=== PATIENT | male | born 1985 | race Hispanic/Latino ===

== ENCOUNTER 2017-06-11 19:18 | Inpatient (IN) | payer BC, OTHER ==
[2017-06-11 19:39] VITALS: BMI 35.4
[2017-06-11 19:57] LABS: BASO # 0.03 K/mm3 (0.0-2.0); BASO % 0.3 % (0.0-3.0); EOS # 0.1 (0.0-0.7); EOS % 1.2 % (1.5-5.0); GRAN # 5.41 (1.4-6.5); HEMOGLOBIN 15.2 g/dL (14.0-18.0); LYMPH # 4.3 (1.2-3.4); LYMPH % 39.7 % (22.0-35.0); MEAN CELL VOLUME 84.4 fl (80.0-105.0); MEAN CORPUSCULAR HGB CONC 35.5 g/dl (31.0-37.0); MEAN PLATELET VOLUME 9.2 fl (7.0-11.0); MONO % 8.8 % (1.0-6.0); RBC 5.07 10^6/uL (3.5-6.1); RED CELL DISTRIBUTION WIDTH 13.3 % (11.5-14.5); WHITE BLOOD COUNT 10.8 10^3/ul (4.5-11.0)
[2017-06-11 20:04] LABS: ALB/GLOB RATIO 1.5 (1.1-1.8); ALBUMIN 4.8 g/dL (3.0-4.8); ALT/SGPT 64 U/L (7-56); AST/SGOT 66 U/L (17-59); BLOOD UREA NITROGEN 16 mg/dL (7-21); CALCIUM 10.8 mg/dL (8.4-10.5); D DIMER < 200 ng/mL (0-243); GFR AFRICAN-AMERICAN > 60; GFR NON-AFRICAN AMERICAN > 60; LIPASE 1111 U/L (23-300); PARTIAL THROMBOPLASTIN TIME 29.8 Seconds (25.1-36.5); PROTHROMBIN TIME 11.4 SECONDS (9.4-12.5)
[2017-06-11] MEDS ORDERED: Sodium Chloride 0.9% 1,000 ML IV STA (20:09)
[2017-06-11] MEDS ORDERED: Morphine 4 mg/ml ISec IVP STA (20:10)
[2017-06-11 20:15] LABS: B-TYPE NATRIURETIC PEPTIDE 26.2 pg/mL (0-450); TROPONIN I < 0.01 ng/mL
--- NOTE | 2017-06-11 20:20 | ED PDOC ---
Arrival/HPI <TiffanyOsmar - Last Filed: 06/11/17 20:24> - General Historian: Patient <Pool Carreon Marti - Last Filed: 06/12/17 01:13> - General Chief Complaint: Chest Pain Time Seen by Provider: 06/11/17 19:29 - History of Present Illness Narrative History of Present Illness (Text): 06/11/17 20:16 32male with no PMhx who present with complaint of sudden epigastric pain. States it started with SOB and then pressure like epigastric abdominal pain this evening. He denies previous history. Denies nausea, vomiting, diarrhea, constipation, chest pain, diaphoresis, fever, chills, sick contact, travel, any other complaint. (Pool Carreon A) Past Medical History - Provider Review Nursing Documentation Reviewed: Yes - Tetanus Immunization Tetanus Immunization: Unknown - Past Medical History Past Medical History: No Previous - Psychiatric Hx Substance Use: No - Past Surgical History Past Surgical History: No Previous <Pool Carreon Marti - Last Filed: 06/12/17 01:13> Family/Social History - Physician Review Nursing Documentation Reviewed: Yes Family/Social History: Unknown Family HX Smoking Status: yes Hx Alcohol Use: No Hx Substance Use: No <Pool Carreon A - Last Filed: 06/12/17 01:13> Allergies/Home Meds <Osmar Allen - Last Filed: 06/11/17 20:24> <Pool Carreon Marti - Last Filed: 06/12/17 01:13> Allergies/Adverse Reactions: Allergies No Known Allergies Allergy (Verified 11/24/13 22:44) Review of Systems - Physician Review All systems were reviewed & negative as marked: Yes - Review of Systems Constitutional: Normal Eyes: Normal ENT: Normal Respiratory: Normal Cardiovascular: Normal Gastrointestinal: Abdominal Pain. absent: Constipation, Diarrhea, Nausea, Vomiting, Hematemesis Genitourinary Male: Normal Musculoskeletal: Normal Skin: Normal Neurological: Normal Endocrine: Normal Hemo/Lymphatic: Normal Psychiatric: Normal <Pool Carreon Marti - Last Filed: 06/12/17 01:13> Physical Exam Vital Signs Reviewed: Yes Temperature: Afebrile Blood Pressure: Normal Pulse: Regular Respiratory Rate: Normal Appearance: Positive for: Well-Appearing, Non-Toxic, Comfortable Pain Distress: None Mental Status: Positive for: Alert and Oriented X 3 - Systems Exam Head: Present: Atraumatic, Normocephalic Pupils: Present: PERRL Extroacular Muscles: Present: EOMI Conjunctiva: Present: Normal Mouth: Present: Moist Mucous Membranes Neck: Present: Normal Range of Motion Respiratory/Chest: Present: Clear to Auscultation, Good Air Exchange. No: Respiratory Distress, Accessory Muscle Use Cardiovascular: Present: Regular Rate and Rhythm, Normal S1, S2. No: Murmurs Abdomen: Present: Tenderness (Epigastric tenderness), Other (Soft). No: Distention, Peritoneal Signs, Rebound, Guarding, McBurney's Point Tender, Rovsing's Sign Present Back: Present: Normal Inspection Upper Extremity: Present: Normal Inspection. No: Cyanosis, Edema Lower Extremity: Present: Normal Inspection. No: Edema Neurological: Present: GCS=15, CN II-XII Intact, Speech Normal Skin: Present: Warm, Dry, Normal Color. No: Rashes Psychiatric: Present: Alert, Oriented x 3, Normal Insight, Normal Concentration <Pool Carreon A - Last Filed: 06/12/17 01:13> Vital Signs Temp Pulse Resp BP Pulse Ox 06/11/17 21:42 66 20 141/82 100 06/11/17 19:29 97.7 F 84 18 131/78 99 Medical Decision Making <Osmar Allen - Last Filed: 06/11/17 20:24> <Pool Carreon A - Last Filed: 06/12/17 01:13> ED Course and Treatment: 06/11/17 20:21 Pt in ED for stated history. He was hemodyanmically stable in ED. Lab was noted with elevated Lipase. On further questioning, pt admits to drinking alcohol this weekend. He drinks alcohol. He will be admitted for further evaluation and Observation. EKG NSR @73bpm 06/12/17 01:[address] Ortiz and she accepted pt for admission. Dr. Melissa, pt's PMD request Dr. Lakhani consult. (Pool Carreon A) - Lab Interpretations Lab Results: 06/11/17 19:35 06/11/17 19:35 Lab Results 06/11/17 19:45: Triglycerides 110, Cholesterol 197, LDL Cholesterol Direct 77, HDL Cholesterol 91 H 06/11/17 19:35: TSH 3rd Generation 1.34, Alcohol, Quantitative < 10 06/11/17 19:35: Sodium 138, Potassium 4.1, Chloride 101, Carbon Dioxide 23, Anion Gap 18, BUN 16, Creatinine 0.9, Est GFR ( Amer) > 60, Est GFR (Non- Af Amer) > 60, Random Glucose 107, Calcium 10.8 H, Magnesium 1.9, Total Bilirubin 1.0, AST 66 H, ALT 64 H, Alkaline Phosphatase 84, Lactate Dehydrogenase 395, Total Creatine Kinase 126, Troponin I < 0.01, NT-Pro-B Natriuret Pep 26.2, Total Protein 7.9, Albumin 4.8, Globulin 3.1, Albumin/ Globulin Ratio 1.5, Lipase 1111 H 06/11/17 19:35: PT 11.4, INR 1.00, APTT 29.8, D-Dimer, Quantitative < 200 06/11/17 19:35: WBC 10.8, RBC 5.07, Hgb 15.2, Hct 42.8, MCV 84.4, MCH 30.0, MCHC 35.5, RDW 13.3, Plt Count 317, MPV 9.2, Gran % 50.0, Lymph % (Auto) 39.7 H , [place] % (Auto) 8.8 H, Eos % (Auto) 1.2 L, Baso % (Auto) 0.3, Gran # 5.41, Lymph # (Auto) 4.3 H, [place] # (Auto) 1.0 H, Eos # (Auto) 0.1, Baso # (Auto) 0.03 - Medication Orders Current Medication Orders: Sodium Chloride (Sodium Chloride 0.9%) 1,000 mls @ 175 mls/hr IV .Q5H43M [facility] Last Admin: 06/11/17 23:13 Dose: 175 mls/hr eMAR Start Stop Document 06/11/17 23:13 MV (Rec: 06/11/17 23:13 MV [id number]) Intravenous Solution Start Date 06/11/17 Start Time 23:13 End Date 06/11/17 Ketorolac Tromethamine (Toradol) 30 mg IVP Q6H PRN PRN Reason: Pain, moderate (4-7) Pantoprazole Sodium (Protonix Inj) 40 mg IVP DAILY JUAN RAMON Discontinued Medications Famotidine (Pepcid) 20 mg IVP STAT STA Stop: 06/11/17 19:52 Last Admin: 06/11/17 20:38 Dose: 20 mg IVP Administration Document 06/11/17 20:38 CNR (Rec: 06/11/17 20:38 CNR [id number]) Charges for Administration # of IVP Administrations 1 Sodium Chloride (Sodium Chloride 0.9%) 1,000 mls @ 999 mls/hr IV .Q1H1M STA Stop: 06/11/17 21:09 Last Admin: 06/11/17 20:38 Dose: 999 mls/hr eMAR Start Stop Document 06/11/17 20:38 CNR (Rec: 06/11/17 20:38 CNR [id number]) Intravenous Solution Start Date 06/11/17 Start Time 20:38 Morphine Sulfate (Morphine) 4 mg IVP STAT STA Stop: 06/11/17 20:11 Last Admin: 06/11/17 20:37 Dose: 4 mg MAR Pain Assessment Document 06/11/17 20:37 CNR (Rec: 06/11/17 20:38 CNR [id number]) Pain Reassessment Is this a pain reassessment? 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 / has examined the patient and agrees with the treatment plan. <Osmar Allen - Last Filed: 06/11/17 20:24> Disposition/Present on Arrival <Osmar Allen - Last Filed: 06/11/17 20:24> - Present on Arrival Any Indicators Present on Arrival: No History of DVT/PE: No History of Uncontrolled Diabetes: No Urinary Catheter: No History of Decub. Ulcer: No History Surgical Site Infection Following: None - Disposition Have Diagnosis and Disposition been Completed?: Yes Disposition Time: 20:25 <Pool Carreon - Last Filed: 06/12/17 01:13> - Disposition Diagnosis: Acute pancreatitis Disposition: HOSPITALIZED Patient Problems: Current Active Problems Problem Status Onset Acute pancreatitis Acute Condition: FAIR
[2017-06-11 21:06] LABS: URINE BILIRUBIN NEGATIVE (NEGATIVE); URINE BLOOD NEGATIVE (NEGATIVE); URINE GLUCOSE (UA) NEGATIVE (NEGATIVE); URINE LEUKOCYTE ESTERASE NEGATIVE Leu/uL (NEGATIVE); URINE PROTEIN NEGATIVE mg/dL (<30 mg/dL); URINE UROBILINOGEN 0.2 E.U./dL (<1 E.U./dL)
[2017-06-11 21:08] LABS: URINE APPEARANCE CLEAR (CLEAR); URINE COLOR YELLOW (YELLOW)
[2017-06-11 21:26] LABS: BARBITURATES, UR NEGATIVE (NEGATIVE); BENZODIAZEPINES, UR NEGATIVE (NEGATIVE); OPIATES, UR POSITIVE (NEGATIVE); PHENCYCLIDINE, UR NEGATIVE (NEGATIVE)
--- NOTE | 2017-06-11 21:26 | CP.PCM.HP ---
History of Present Illness - History of Present Illness History of Present Illness: Kari Aiken, PGY1, H&P for Dr Ortiz: CC: epigastric pain 32 year old male with no significant PMH, presents for sudden onset of epigastric pain this afternoon. Pt states that he was cooking at home, when he felt sudden pressure like epigastric pain, constant, nonradiating, has no associated nausea, vomiting, fever, chills, AMS/confusion. Pt tried walking around at home to relieve his pain. He however, states that the pain got worse after some time, causing him sob, which prompted him to come to ED. No sick contacts or recent travel. Pt was in his usual state of health prior to this pain. No prior such episodes. Pt states that he has been eating more junk/fatty foods like pizza, since his got 7 months ago. Last alcohol drink this past Sunday, mostly rum and cocktail drinks. Furthermore, denies headache , cp, jaundice, neck pain, diaphoresis, palpitations, worsening of pain with exertion, diarrhea, constipation, melena, hematochezia, fatigue, urinary symptoms, leg swelling, orthopnea. In ED, pt's vitals stable. Elevated lipase 1111, with elevated lfts AST 66, ALT 64, calcium 10.8. EKG showed NSR with no ST/T wave abnormalities, trop neg x1. Received Pepcid, Morphine, 1L NS bolus in ED. 12 point ROS obtained and negative, except as per HPI. PMD: [facility] ([place], [place]) PMH: denies PSH: denies All: NKA FH: Grandfather, cirrhosis, alcoholic Mother, heart mumur HTN, esophageal cancer, stomach cancer SH: Lives with . 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 Smokes cigars 1-2X/month. Drinks alcohol every other weeks, cocktail drinks 3-4, rum. Denies illicit drug use. Present on Admission - Present on Admission Any Indicators Present on Admission: No History of DVT/PE: No History of Uncontrolled Diabetes: No Urinary Catheter: No Decubitus Ulcer Present: No Review of Systems - Review of Systems All systems: reviewed and no additional remarkable complaints except Review of Systems: as per hpi Past Patient History - Tetanus Immunizations Tetanus Immunization: Unknown - Past Social History Smoking Status: yes - PSYCHIATRIC Hx Substance Use: No Meds Allergies/Adverse Reactions: Allergies Allergy/AdvReac Type Severity Reaction Status Date / Time No Known Allergies Allergy Verified 11/24/13 22:44 Physical Exam - Constitutional Appears: Non-toxic, No Acute Distress - Head Exam Head Exam: ATRAUMATIC, NORMOCEPHALIC - Eye Exam Eye Exam: EOMI, PERRL. absent: Conjunctival injection, Nystagmus, Scleral icterus Pupil Exam: NORMAL ACCOMODATION, PERRL. absent: Fixed, Irregular, Unequal - ENT Exam ENT Exam: Mucous Membranes Moist - Neck Exam Neck exam: Positive for: Full Rom - Respiratory Exam Respiratory Exam: Clear to Auscultation Bilateral, NORMAL BREATHING PATTERN. absent: Accessory Muscle Use, Rales, Rhonchi, Wheezes, Respiratory Distress, Stridor - Cardiovascular Exam Cardiovascular Exam: RRR, +S1, +S2. absent: Systolic Murmur - GI/Abdominal Exam GI & Abdominal Exam: Normal Bowel Sounds, Soft, Tenderness (Mild TTP in epigatric region). absent: Distended, Firm, Guarding, Rebound, Rigid - Extremities Exam Extremities exam: Positive for: normal inspection. Negative for: calf tenderness, pedal edema - Back Exam Back exam: NORMAL INSPECTION. absent: CVA tenderness (L), CVA tenderness (R) - Neurological Exam Neurological exam: Alert, Oriented x3 - Psychiatric Exam Psychiatric exam: Normal Affect, Normal Mood - Skin Skin Exam: Dry, Normal Color, Warm Results - Vital Signs Recent Vital Signs: Last Vital Signs Temp 97.7 F 06/11/17 19:29 Pulse 84 06/11/17 19:29 Resp 18 06/11/17 19:29 BP 131/78 06/11/17 19:29 Pulse Ox 99 06/11/17 19:29 - Labs Result Diagrams: 06/11/17 19:35 06/11/17 19:35 Labs: Laboratory Results - last 24 hr 06/11/17 06/11/17 06/11/17 19:35 19:35 19:35 WBC 10.8 RBC 5.07 Hgb 15.2 Hct 42.8 MCV 84.4 MCH 30.0 MCHC 35.5 RDW 13.3 Plt Count 317 MPV 9.2 Gran % 50.0 Lymph % (Auto) 39.7 H [place] % (Auto) 8.8 H Eos % (Auto) 1.2 L Baso % (Auto) 0.3 Gran # 5.41 Lymph # (Auto) 4.3 H [place] # (Auto) 1.0 H Eos # (Auto) 0.1 Baso # (Auto) 0.03 PT 11.4 INR 1.00 APTT 29.8 D-Dimer, Quantitative < 200 Sodium 138 Potassium 4.1 Chloride 101 Carbon Dioxide 23 Anion Gap 18 BUN 16 Creatinine 0.9 Est GFR ( Amer) > 60 Est GFR (Non-Af Amer) > 60 Random Glucose 107 Calcium 10.8 H Magnesium 1.9 Total Bilirubin 1.0 AST 66 H ALT 64 H Alkaline Phosphatase 84 Lactate Dehydrogenase 395 Total Creatine Kinase 126 Troponin I < 0.01 NT-Pro-B Natriuret Pep 26.2 Total Protein 7.9 Albumin 4.8 Globulin 3.1 Albumin/Globulin Ratio 1.5 Lipase 1111 H Urine Color Urine Appearance Urine pH Ur Specific [place] Urine Protein Urine Glucose (UA) Urine Ketones Urine Blood Urine Nitrate Urine Bilirubin Urine Urobilinogen Ur Leukocyte Esterase 06/11/17 20:56 WBC RBC Hgb Hct MCV MCH MCHC RDW Plt Count MPV Gran % Lymph % (Auto) [place] % (Auto) Eos % (Auto) Baso % (Auto) Gran # Lymph # (Auto) [place] # (Auto) Eos # (Auto) Baso # (Auto) PT INR APTT D-Dimer, Quantitative Sodium Potassium Chloride Carbon Dioxide Anion Gap BUN Creatinine Est GFR ( Amer) Est GFR (Non-Af Amer) Random Glucose Calcium Magnesium Total Bilirubin AST ALT Alkaline Phosphatase Lactate Dehydrogenase Total Creatine Kinase Troponin I NT-Pro-B Natriuret Pep Total Protein Albumin Globulin Albumin/Globulin Ratio Lipase Urine Color Yellow Urine Appearance Clear Urine pH 6.0 Ur Specific [place] <= 1.005 Urine Protein Negative Urine Glucose (UA) Negative Urine Ketones Negative Urine Blood Negative Urine Nitrate Negative Urine Bilirubin Negative Urine Urobilinogen 0.2 Ur Leukocyte Esterase Negative Assessment & Plan - Assessment and Plan (Free Text) Assessment: 32 year old male with no significant PMH, presents for epigastric pain: Epigastric pain: likely 2/2 acute pancreatitis vs GERD vs less likely ACS - NPO, IVF NS @ 175, toradol prn pain - Lipid panel, RUQ US - GI consult. F/u recs - Villard's criteria 1 point: <5% mortality - BISAP score 0: <1% risk of mortality - Protonix - EKG showed 73 NSR. trop negx1 - CATE score 0 PPX: SCDs, Protonix Discussed with Dr Ortiz.
[2017-06-11 21:53] LABS: HDL CHOLESTEROL 91 mg/dL (29-60)
[2017-06-11 22:04] LABS: LDL CHOLESTEROL 77 mg/dL (0-129)
[2017-06-11] MEDS: Sodium Chloride 0.9% 1,000 ML IV SCH (23:13)
[2017-06-12] MEDS: Sodium Chloride 0.9% 1,000 ML IV SCH ×3 (03:20→20:07)
[2017-06-12 06:50] LABS: BASO # 0.03 K/mm3 (0.0-2.0); BASO % 0.4 % (0.0-3.0); EOS # 0.1 (0.0-0.7); EOS % 1.7 % (1.5-5.0); GRAN # 3.92 (1.4-6.5); GRAN % 51.5 % (50.0-68.0); HEMOGLOBIN 13.9 g/dL (14.0-18.0); MEAN CELL VOLUME 85.5 fl (80.0-105.0); MEAN CORPUSCULAR HEMOGLOBIN 29.2 pg (25.0-35.0); MEAN CORPUSCULAR HGB CONC 34.2 g/dl (31.0-37.0); MEAN PLATELET VOLUME 9.1 fl (7.0-11.0); MONO # 0.6 (0.1-0.6); MONO % 7.4 % (1.0-6.0); RBC 4.76 10^6/uL (3.5-6.1); RED CELL DISTRIBUTION WIDTH 13.5 % (11.5-14.5); WHITE BLOOD COUNT 7.6 10^3/ul (4.5-11.0)
[2017-06-12 07:16] LABS: ALB/GLOB RATIO 1.4 (1.1-1.8); ALBUMIN 3.8 g/dL (3.0-4.8); ALT/SGPT 87 U/L (7-56); AST/SGOT 65 U/L (17-59); BLOOD UREA NITROGEN 13 mg/dL (7-21); CALCIUM 9.5 mg/dL (8.4-10.5); GFR AFRICAN-AMERICAN > 60; GFR NON-AFRICAN AMERICAN > 60
[2017-06-12] MEDS ORDERED: Barium Sulfate Susp 2.1% w/v, 2.0% w/w 450 mL Bottle PO ONE (07:23)
[2017-06-12 08:02] VITALS: RESP 18
--- NOTE | 2017-06-12 10:29 | CARD ---
APPROVED REPORT EKG Measurement Heart [id number] <Conclusion> Normal sinus rhythm Normal ECG
--- NOTE | 2017-06-12 10:40 | US ---
HISTORY: RUQ US, eleavted LFTs, pancreatitis COMPARISON: None. TECHNIQUE: Grayscale imaging was performed. FINDINGS: LIVER: Measures 22.2 cm in length. There is diffuse increased echogenicity of the liver parenchyma. No mass. No intrahepatic bile duct dilatation. GALLBLADDER: There are no gallstones, wall thickening or pericholecystic fluid. The sign is negative. COMMON BILE DUCT: Measures 5.6 mm. No stones. No dilatation. PANCREAS: Obscured by bowel. RIGHT KIDNEY: Measures 12.3 cm in length. Normal echogenicity. No calculus, mass, or hydronephrosis. AORTA: No aneurysmal dilatation. IVC: Unremarkable. OTHER FINDINGS: None . IMPRESSION: Mild hepatomegaly. Diffuse increased echogenicity in the liver may reflect hepatic steatosis however parenchymal infectious/ inflammatory etiologies cannot be entirely excluded. Clinical and laboratory correlation is advised. . No cholelithiasis or biliary dilatation. The pancreas is not visualized, obscured by bowel gas.
--- NOTE | 2017-06-12 13:48 | CT ---
PROCEDURE: CT Abdomen and Pelvis with and without intravenous contrast HISTORY: pancreatitis COMPARISON: None. TECHNIQUE: Axial images of the abdomen were obtained in the pre contrast, portal venous and delayed phases of enhancement. Coronal and sagittal reformats were generated. Contrast dose: 150 cc of Omni 350 Radiation dose: Total exam DLP = 2215 mGy-cm. This CT exam was performed using one or more of the following dose reduction techniques: Automated exposure control, adjustment of the mA and/or kV according to patient size, and/or use of iterative reconstruction technique. FINDINGS: LOWER THORAX: Unremarkable. LIVER: Unremarkable. No gross lesion or ductal dilatation. Fatty infiltration of the liver GALLBLADDER AND BILE DUCTS: Unremarkable. PANCREAS: Unremarkable. No gross lesion or ductal dilatation. SPLEEN: Unremarkable. ADRENALS: Unremarkable. No mass. KIDNEYS AND URETERS: Unremarkable. No hydronephrosis. No solid mass. VASCULATURE: Unremarkable. No aortic aneurysm. BOWEL: Unremarkable. No obstruction. No gross mural thickening. APPENDIX: Normal appendix. PERITONEUM: Unremarkable. No free fluid. No free air. LYMPH NODES: Unremarkable. No enlarged lymph nodes. BLADDER: Unremarkable. REPRODUCTIVE: Unremarkable. BONES: No acute fracture. OTHER FINDINGS: None. IMPRESSION: There is fatty infiltration of the liver. The pancreas is unremarkable
[2017-06-12 18:33] VITALS: PULSE 63
[2017-06-13] MEDS: Sodium Chloride 0.9% 1,000 ML IV SCH (01:14)
[2017-06-13 06:22] LABS: BASO # 0.03 K/mm3 (0.0-2.0); BASO % 0.5 % (0.0-3.0); EOS # 0.2 (0.0-0.7); EOS % 2.9 % (1.5-5.0); GRAN # 2.37 (1.4-6.5); HEMOGLOBIN 13.8 g/dL (14.0-18.0); LYMPH # 2.7 (1.2-3.4); LYMPH % 45.8 % (22.0-35.0); MEAN CORPUSCULAR HEMOGLOBIN 29.2 pg (25.0-35.0); MONO # 0.6 (0.1-0.6); MONO % 9.8 % (1.0-6.0); RBC 4.72 10^6/uL (3.5-6.1); RED CELL DISTRIBUTION WIDTH 13.3 % (11.5-14.5); WHITE BLOOD COUNT 5.8 10^3/ul (4.5-11.0)
[2017-06-13 07:07] LABS: ALB/GLOB RATIO 1.4 (1.1-1.8); ALBUMIN 3.8 g/dL (3.0-4.8); ALT/SGPT 74 U/L (7-56); AST/SGOT 39 U/L (17-59); BLOOD UREA NITROGEN 9 mg/dL (7-21); CALCIUM 9.6 mg/dL (8.4-10.5); GFR AFRICAN-AMERICAN > 60; GFR NON-AFRICAN AMERICAN > 60
[2017-06-13] MEDS ORDERED: Sodium Chloride 0.9% 1,000 ML IV SCH (07:34)
[2017-06-13] MEDS ORDERED: Dextrose 5%/0.9% NS 1,000 ML IV SCH (14:30)
[2017-06-13] MEDS ORDERED: Lactated Ringer's 1,000 ML IV SCH (14:45)
--- NOTE | 2017-06-13 14:47 | CP.PCM.PN ---
<Marisela Ann - Last Filed: 06/13/17 14:34> Subjective - Date & Time of Evaluation Date of Evaluation: 06/13/17 Time of Evaluation: 07:30 - Subjective Subjective: Patient has been seen and examined. No complaints at this time. Denies any abdominal pain, fever, nausea, or vomiting. He is tolerating liquid diet and is aware of MRCP that was ordered. Objective - Vital Signs/Intake and Output Vital Signs (last 24 hours): Temp Pulse Resp BP Pulse Ox 98 F 63 18 130/86 99 06/12/17 16:00 06/12/17 16:00 06/12/17 16:00 06/12/17 16:00 06/12/17 16:00 Intake and Output: 06/13/17 06/13/17 06:59 18:59 Intake Total 760 120 Output Total 875 Balance 760 -755 - Medications Medications: Current Medications Lactated Ringer's (Lactated Ringer's) 1,000 mls @ 150 mls/hr IV .Q6H40M [facility] Ketorolac Tromethamine (Toradol) 30 mg IVP Q6H PRN PRN Reason: Pain, moderate (4-7) Pantoprazole Sodium (Protonix Inj) 40 mg IVP DAILY [facility] Last Admin: 06/13/17 09:42 Dose: 40 mg - Labs Labs: 06/13/17 06:00 06/13/17 06:00 PT 11.4 SECONDS (9.4-12.5) 06/11/17 19:35 INR 1.00 (0.93-1.08) 06/11/17 19:35 APTT 29.8 Seconds (25.1-36.5) 06/11/17 19:35 - Constitutional Appears: Well, Non-toxic - Head Exam Head Exam: ATRAUMATIC, NORMAL INSPECTION, NORMOCEPHALIC - ENT Exam ENT Exam: Mucous Membranes Moist - Respiratory Exam Respiratory Exam: Clear to Ausculation Bilateral, NORMAL BREATHING PATTERN. absent: Rales, Rhonchi, Wheezes - Cardiovascular Exam Cardiovascular Exam: RRR, +S1, +S2 - GI/Abdominal Exam GI & Abdominal Exam: Soft. absent: Distended, Firm, Guarding, Rigid, Tenderness , Rebound - Extremities Exam Extremities Exam: Normal Capillary Refill. absent: Pedal Edema - Neurological Exam Neurological Exam: Alert, Awake, Oriented x3 - Psychiatric Exam Psychiatric exam: Normal Affect, Normal Mood - Skin Skin Exam: Normal Color, Warm Assessment and Plan - Assessment and Plan (Free Text) Assessment: 32 year old male with no significant PMH, presents for epigastric pain: Plan: Epigastric pain: likely 2/2 acute pancreatitis vs GERD vs less likely ACS Abd US (Adm) - Pancreas could not be visualized due to bowel gas. Mild hepatomegaly and fatty infiltration Pancreas CT - There is fatty infiltration of the liver. The pancreas is unremarkable - LR @ 150 - Toradol 30 Q6H PRN - Lipid Panel - Unremarkable - GI consult. Recs appreciated Liquid Diet MRCP - Gonvick's criteria 1 point: <5% mortality - BISAP score 0: <1% risk of mortality - Protonix 40mg IV Daily - EKG showed 73 NSR. trop negx1 - CATE score 0 PPX: SCDs, Protonix Discussed with Dr Ortiz. Marisela Ann, PGY-1 <Mic Ortiz - Last Filed: 06/14/17 08:29> Objective - Vital Signs/Intake and Output Vital Signs (last 24 hours): Temp Pulse Resp BP Pulse Ox 98.2 F 63 18 134/91 H 98 06/13/17 16:00 06/13/17 16:00 06/13/17 16:00 06/13/17 16:00 06/13/17 16:00 - Labs Labs: 06/13/17 06:00 06/13/17 06:00 PT 11.4 SECONDS (9.4-12.5) 06/11/17 19:35 INR 1.00 (0.93-1.08) 06/11/17 19:35 APTT 29.8 Seconds (25.1-36.5) 06/11/17 19:35 Attending/Attestation - Attestation I have personally seen and examined this patient.: Yes I have fully participated in the care of the patient.: Yes I have reviewed all pertinent clinical information, including history, physical exam and plan: Yes Notes (Text): I have seen and examined the patient at bedside. Agree with the above note with the following additions/ exceptions: Briefly this is 32 year old with history of tobacco use who was admitted for evaluation of epigastric pain and found to have acute pancreatitis due to unknown cause. Patient denies any complaints. He is able to tolerate clear liquid diet. Pancreas CT revealed fatty liver. Life style modifications advised. MRCP pending. Patient denies frequent alcohol use. Lipid panel unremarkable. He doesn't take any medications. Upon discharge patient will follow up with Dr Mistry. Dr Mic Ortiz
--- NOTE | 2017-06-13 15:59 | CON ---
DATE: 06/12/2017 HISTORY OF PRESENT ILLNESS: This patient was seen and evaluated earlier. This 32-year-old patient with no significant past medical history, had an acute onset of abdominal pain, while was cooking at home. The pain was like a cramping discomfort on the left side of the abdomen and the epigastric area. He never experienced the symptoms before. Patient was found to have an elevated lipase of 111 in the ER. Patient denies having alcohol two days period. He said he was doing well until this episode. No fever. PAST MEDICAL HISTORY: Other past medical history not significant. SOCIAL HISTORY: Alcohol socially. Alcohol every other week. . PHYSICAL EXAMINATION: GENERAL: On examination, patient is lying on the bed, not in acute distress. VITAL SIGNS: Pulse 63, temperature 98, blood pressure is 130/86, respirations 18, O2 saturation 99. HEENT: Atraumatic, anicteric. NECK: Supple. HEART: S1, S2 heard. LUNGS: Bilateral air entry present. ABDOMEN: Soft. There is no mass palpable. No tenderness. EXTREMITIES: No edema. No cyanosis. NEUROLOGICAL: Alert, oriented, moves all the extremities. LABORATORY DATA: Shows a calcium is 10.8, it came down to 9.5. AST is 65, ALT 87. Chemistry: Hemoglobin 13.7, hematocrit 40.7, WBC is 7.6, platelets 283. Patient had a CAT scan of the abdomen and pelvis done, which was reviewed. Normal pancreatic contour. Fatty infiltration of the liver. Ultrasound shows no gallstones, normal CBD, no cholelithiasis. IMPRESSION: This 32-year-old patient with no significant past medical history, admitted with acute onset of abdominal pain in the epigastric and the left upper quadrant area, no similar previous episode. Has elevated lipase level. CT showed fatty infiltration of the liver. Pancreas contour normal. Sonogram did not show any stones. Patient has mildly elevated lipase level, pancreas transaminases, probable fatty liver disease, would request hepatitis profile as a baseline workup. RECOMMENDATIONS: 1. Etiology for left upper quadrant pain is unclear, but peptic ulcer disease should be considered as a differential diagnosis. Was elevated lipase level. Pancreatitis is also be included in the differential diagnosis. Patient says he did not have the episode of abdominal pain before. Patient has been socially drinking alcohol all along for long time socially. Would recommend one empiric treatment with proton pump inhibitor. 2. Patient would request the MRI of the abdomen with MRCP to evaluate the pancreatic duct. Followup of the chemistry last morning. We will the patient on clear liquid diet. We will slowly advance the diet to low-fat soft diet after the MRCP tolerate it well. Patient may be discharged home to be followed up as an outpatient in the office. Thank you very much for allowing us to participate in the care of the patient. Anita Lakhani MD
--- NOTE | 2017-06-13 16:35 | CP.PCM.DIS ---
Provider - Provider Date of Admission: 06/11/17 20:24 Attending physician: Mic Ortiz MD Hospital Course - Lab Results Lab Results: Most Recent Lab Values WBC 5.8 10^3/ul (4.5-11.0) D 06/13/17 06:00 RBC 4.72 10^6/uL (3.5-6.1) 06/13/17 06:00 Hgb 13.8 g/dL (14.0-18.0) L 06/13/17 06:00 Hct 40.6 % (42.0-52.0) L 06/13/17 06:00 MCV 86.0 fl (80.0-105.0) 06/13/17 06:00 MCH 29.2 pg (25.0-35.0) 06/13/17 06:00 MCHC 34.0 g/dl (31.0-37.0) 06/13/17 06:00 RDW 13.3 % (11.5-14.5) 06/13/17 06:00 Plt Count 271 10^3/uL (120.0-450.0) 06/13/17 06:00 MPV 9.0 fl (7.0-11.0) 06/13/17 06:00 Gran % 41.0 % (50.0-68.0) L 06/13/17 06:00 Lymph % (Auto) 45.8 % (22.0-35.0) H 06/13/17 06:00 [place] % (Auto) 9.8 % (1.0-6.0) H 06/13/17 06:00 Eos % (Auto) 2.9 % (1.5-5.0) 06/13/17 06:00 Baso % (Auto) 0.5 % (0.0-3.0) 06/13/17 06:00 Gran # 2.37 (1.4-6.5) 06/13/17 06:00 Lymph # (Auto) 2.7 (1.2-3.4) 06/13/17 06:00 [place] # (Auto) 0.6 (0.1-0.6) 06/13/17 06:00 Eos # (Auto) 0.2 (0.0-0.7) 06/13/17 06:00 Baso # (Auto) 0.03 K/mm3 (0.0-2.0) 06/13/17 06:00 PT 11.4 SECONDS (9.4-12.5) 06/11/17 19:35 INR 1.00 (0.93-1.08) 06/11/17 19:35 APTT 29.8 Seconds (25.1-36.5) 06/11/17 19:35 D-Dimer, Quantitative < 200 ng/mL (0-243) 06/11/17 19:35 Sodium 141 mmol/L (132-148) 06/13/17 06:00 Potassium 4.0 mmol/L (3.6-5.0) 06/13/17 06:00 Chloride 106 mmol/L (98-107) 06/13/17 06:00 Carbon Dioxide 27 mmol/L (21-33) 06/13/17 06:00 Anion Gap 12 (10-20) 06/13/17 06:00 BUN 9 mg/dL (7-21) 06/13/17 06:00 Creatinine 0.8 mg/dl (0.8-1.5) 06/13/17 06:00 Est GFR ( Amer) > 60 06/13/17 06:00 Est GFR (Non-Af Amer) > 60 06/13/17 06:00 Random Glucose 90 mg/dL (70-110) 06/13/17 06:00 Hemoglobin A1c 5.5 % (4.2-6.5) 06/11/17 19:35 Calcium 9.6 mg/dL (8.4-10.5) 06/13/17 06:00 Phosphorus 3.9 mg/dL (2.5-4.5) 06/13/17 06:00 Magnesium 2.1 mg/dL (1.7-2.2) 06/13/17 06:00 Total Bilirubin 0.7 mg/dL (0.2-1.3) 06/13/17 06:00 AST 39 U/L (17-59) 06/13/17 06:00 ALT 74 U/L (7-56) H 06/13/17 06:00 Alkaline Phosphatase 60 U/L (38-126) 06/13/17 06:00 Lactate Dehydrogenase 395 U/L (333-699) 06/11/17 19:35 Total Creatine Kinase 126 U/L (35-230) 06/11/17 19:35 Troponin I < 0.01 ng/mL 06/11/17 19:35 NT-Pro-B Natriuret Pep 26.2 pg/mL (0-450) 06/11/17 19:35 Total Protein 6.5 g/dL (5.8-8.3) 06/13/17 06:00 Albumin 3.8 g/dL (3.0-4.8) 06/13/17 06:00 Globulin 2.7 gm/dL 06/13/17 06:00 Albumin/Globulin Ratio 1.4 (1.1-1.8) 06/13/17 06:00 Triglycerides 110 mg/dL (35-160) 06/11/17 19:45 Cholesterol 197 mg/dL (130-200) 06/11/17 19:45 LDL Cholesterol Direct 77 mg/dL (0-129) 06/11/17 19:45 HDL Cholesterol 91 mg/dL (29-60) H 06/11/17 19:45 Lipase 1111 U/L (23-300) H 06/11/17 19:35 TSH 3rd Generation 1.34 mIU/mL (0.46-4.68) 06/11/17 19:35 Urine Color Yellow (YELLOW) 06/11/17 20:56 Urine Appearance Clear (CLEAR) 06/11/17 20:56 Urine pH 6.0 (4.7-8.0) 06/11/17 20:56 Ur Specific [place] <= 1.005 (1.005-1.035) 06/11/17 20:56 Urine Protein Negative mg/dL (<30 mg/dL) 06/11/17 20:56 Urine Glucose (UA) Negative mg/dL (NEGATIVE) 06/11/17 20:56 Urine Ketones Negative mg/dL (NEGATIVE) 06/11/17 20:56 Urine Blood Negative (NEGATIVE) 06/11/17 20:56 Urine Nitrate Negative (NEGATIVE) 06/11/17 20:56 Urine Bilirubin Negative (NEGATIVE) 06/11/17 20:56 Urine Urobilinogen 0.2 E.U./dL (<1 E.U./dL) 06/11/17 20:56 Ur Leukocyte Esterase Negative Sweta/uL (NEGATIVE) 06/11/17 20:56 Urine Opiates Screen Positive (NEGATIVE) H 06/11/17 20:56 Urine Methadone Screen Negative (NEGATIVE) 06/11/17 20:56 Ur Barbiturates Screen Negative (NEGATIVE) 06/11/17 20:56 Ur Phencyclidine Scrn Negative (NEGATIVE) 06/11/17 20:56 Ur Amphetamines Screen Negative (NEGATIVE) 06/11/17 20:56 U Benzodiazepines Scrn Negative (NEGATIVE) 06/11/17 20:56 U Oth Cocaine Metabols Negative (NEGATIVE) 06/11/17 20:56 U Cannabinoids Screen Negative (NEGATIVE) 06/11/17 20:56 Alcohol, Quantitative < 10 mg/dL (0-10) 06/11/17 19:35 Discharge Exam - Head Exam Head Exam: ATRAUMATIC, NORMAL INSPECTION, NORMOCEPHALIC Discharge Plan - Follow Up Plan Condition: FAIR Disposition: HOME/ ROUTINE
[2017-06-13 16:55] VITALS: BP 134/91; TEMP 98.2; O2SAT 98
[2017-06-13] MEDS ORDERED: Gadodiamide 287 MG/ML VIAL (20ML) IV ONE (17:02)
--- NOTE | 2017-06-13 17:26 | CP.PCM.PN ---
<Marcia Nunez - Last Filed: 06/13/17 17:19> Subjective - Date & Time of Evaluation Date of Evaluation: 06/13/17 Time of Evaluation: 11:05 - Subjective Subjective: Seen and examined at the bedside earlier today, chart reviewed. Waiting to go for MRI, no acute overnight events reported. Patient denies nausea, vomiting, or abdominal pain. Objective - Vital Signs/Intake and Output Vital Signs (last 24 hours): Temp Pulse Resp BP Pulse Ox 98.2 F 63 18 134/91 H 98 06/13/17 16:00 06/13/17 16:00 06/13/17 16:00 06/13/17 16:00 06/13/17 16:00 Intake and Output: 06/13/17 06/13/17 06:59 18:59 Intake Total 760 120 Output Total 875 Balance 760 -755 - Medications Medications: Current Medications Lactated Ringer's (Lactated Ringer's) 1,000 mls @ 150 mls/hr IV .Q6H40M [facility] Last Admin: 06/13/17 14:43 Dose: 150 mls/hr Ketorolac Tromethamine (Toradol) 30 mg IVP Q6H PRN PRN Reason: Pain, moderate (4-7) Pantoprazole Sodium (Protonix Inj) 40 mg IVP DAILY [facility] Last Admin: 06/13/17 09:42 Dose: 40 mg - Labs Labs: 06/13/17 06:00 06/13/17 06:00 PT 11.4 SECONDS (9.4-12.5) 06/11/17 19:35 INR 1.00 (0.93-1.08) 06/11/17 19:35 APTT 29.8 Seconds (25.1-36.5) 06/11/17 19:35 - Constitutional Appears: No Acute Distress - Head Exam Head Exam: NORMOCEPHALIC - Eye Exam Eye Exam: Normal appearance. absent: Scleral icterus - ENT Exam ENT Exam: Mucous Membranes Moist - Neck Exam Neck Exam: Normal Inspection - Respiratory Exam Respiratory Exam: NORMAL BREATHING PATTERN. absent: Respiratory Distress - Cardiovascular Exam Cardiovascular Exam: +S1, +S2 - GI/Abdominal Exam GI & Abdominal Exam: Soft, Normal Bowel Sounds. absent: Guarding, Tenderness, Organomegaly, Rebound - Extremities Exam Extremities Exam: Normal Capillary Refill. absent: Calf Tenderness, Pedal Edema - Neurological Exam Neurological Exam: Alert, Awake, Oriented x3 Assessment and Plan - Assessment and Plan (Free Text) Assessment: Assessment: Left upper quadrant pain, pharyngitis considers peptic ulcer disease Elevated lipase, pancreatitis, scan shows normal contour of the pancreas, drinks alcohol only socially Fatty liver Elevated LFTs, ultrasound negative for gallstones or CBD dilation Plan: Clear liquid diet, pending MRI/MRCP Current LFTs Continue PPI Discuss FU outpatient follow-up, may benefit from egd r/o PUD , can consider electively as outpatient. Seen and discussed with Dr. Lakhani. <Anita Lakhani V - Last Filed: 06/13/17 23:02> Objective - Vital Signs/Intake and Output Vital Signs (last 24 hours): Temp Pulse Resp BP Pulse Ox 98.2 F 63 18 134/91 H 98 06/13/17 16:00 06/13/17 16:00 06/13/17 16:00 06/13/17 16:00 06/13/17 16:00 Intake and Output: 06/13/17 06/14/17 18:59 06:59 Intake Total 120 Output Total 875 Balance -755 - Labs Labs: 06/13/17 06:00 06/13/17 06:00 PT 11.4 SECONDS (9.4-12.5) 06/11/17 19:35 INR 1.00 (0.93-1.08) 06/11/17 19:35 APTT 29.8 Seconds (25.1-36.5) 06/11/17 19:35 Attending/Attestation - Attestation I have personally seen and examined this patient.: Yes I have fully participated in the care of the patient.: Yes I have reviewed all pertinent clinical information, including history, physical exam and plan: Yes Notes (Text): This is an addendum to GI progress report dictated by Marcia Nunez APN.The patient was seen and examined earlier. Medical records, lab studies, imagings were reviewed. Last 24 hours events reviewed. Agreed with the above treatment plan as outlined in Marcia Nunez APN's notes with the addition of the following no complaints of abdominal pa Awaiting for MRI with MRCP to rule out pancreatic divisum Patient has mildly elevated serum calcium 10.8 Discussed with the for outpatient evaluation 06/13/17 23:01
--- NOTE | 2017-06-14 12:43 | MRI ---
PROCEDURE: Magnetic Resonance Cholangiopancreatography and MRI of the abdomen with and without contrast HISTORY: COMPARISON: None available. TECHNIQUE: Multiplanar, multisequence MR images of the abdomen were obtained, including heavily T2 weighted MRCP images of the biliary system. Rotating maximum intensity projection images of the biliary system were generated. 20 cc of Omniscan FINDINGS: MRCP: The common bile duct is of a normal caliber. No evidence of choledocholithiasis. No intrahepatic biliary ductal dilatation. There is no evidence of pancreatic duct anomaly. LIVER: Unremarkable. GALLBLADDER: Unremarkable. SPLEEN: Unremarkable. PANCREAS: Unremarkable. ADRENALS: Unremarkable. KIDNEYS: Unremarkable. AORTA: No aneurysm. ASCITES: None. OTHER FINDINGS: No enhancing abnormalities. The report concurs with the preliminary [facility] report IMPRESSION: Negative study
== END 2017-06-13 19:11 | disposition home or self-care (01) | DRG 440 ==
LOC: ED 19:18 → ERH 20:24 → 3RNO 22:27
PROVIDERS: ADMIT Hospitalist; ATTEND Hospitalist
DX: K85.90 Acute pancreatitis without necrosis or infection, unspecified (principal); K76.0 Fatty (change of) liver, not elsewhere classified; F17.290 Nicotine dependence, other tobacco product, uncomplicated